=== PATIENT | male | born 1995 | race Two or more races ===

== ENCOUNTER 2022-06-03 12:30 | Emergency (ER) | payer OTHER ==
[~2022-06-03] VITALS: Ht 167.6 cm; Wt 90.7 kg
--- NOTE | 2022-06-03 12:40 | NUR ---
L thumb laceration while cutting wood w/ a saw.
[2022-06-03] MEDS ORDERED: LIDOCAINE HCL/MPF 1% 30 ML VIAL IJ ONE (12:41)
[2022-06-03] MEDS ORDERED: CEPHALEXIN MONOHYDRATE 500 MG CAPSULE PO ONE ×2 (13:00→13:04)
[2022-06-03] MEDS ORDERED: TDAP [DIPH/PERTUSSIS/TET] 0.5 ML VIAL IM ONE ×2 (13:00→13:52)
--- NOTE | 2022-06-03 13:00 | NUR ---
Marcella torres in [place] - 06/03/22 at 1300 by VIKA FAXED CLINICALS TO [facility] FAX NUMBER- [phone]
[2022-06-03] MEDS ORDERED: CEPH500C2 PO (14:04)
[2022-06-03] MEDS ORDERED: IBUP-1955 PO (14:04)
--- NOTE | 2022-06-03 14:33 | NUR ---
Patient discharged to home in stable condition. Written and verbal after care instructions given. Patient verbalizes understanding of instruction.
[2022-06-03 14:35] VITALS: BP 144/88
== END 2022-06-03 14:35 | disposition home or self-care (01) ==
LOC: ER 12:35
DX: S61.012A Laceration without foreign body of left thumb without damage to nail, initial encounter (principal); W27.0XXA Contact with workbench tool, initial encounter; Y93.89 Activity, other specified; Y92.89 Other specified places as the place of occurrence of the external cause; Y99.8 Other external cause status
CPT/HCPCS: 99283; 12002; 90471; 90715; 73140; A6403; J3490